=== PATIENT | female | born 1935 | race Hispanic/Latino ===

== ENCOUNTER 2019-01-20 11:04 | Emergency (ER) | payer MEDICARE, OTHER ==
[~2019-01-20] VITALS: Ht 144.8 cm; Wt 49.9 kg
[~2019-01-20 11:04] MED LIST: ADVAIR 250-501 EACH INH; ALBUTEROL0.63 MG/3 INH; ALENDRONATE SOD35 MG PO; AMLODIPINE BESY10 MG PO; ASPIR 8181 MG PO; CALCIUM CARBON500 MG PO; CETIRIZINE HCL10 M1 PO; CIPRO500 MG PO; FLUTICASONE PRO15 G1; LASIX20 MG PO; OMEPRAZOLE40 MG PO; PREDNISONE5 MG PO; TEMAZEPAM15 MG PO
--- OUTSIDE RECORDS SUMMARY | 2019-01-20 11:07 | XMS REPORT ---
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 Allergies, Adverse Reactions, Alerts This patient has no known allergies or adverse reactions. Medications This patient has no known medications. Results Test Description Test Time Test Comments Text Results Atomic Results Result Comments AFB CULTURE + SMEAR 2018-10-21 19:49:00 CULTURE (BEAKER) (test jnmv=8054) MYCOBACTERIUM AVIUM COMPLEX Mycobacterium avium complexIdentification performed by:[facility], [address] [place] [id number] performed by:[facility]ly [facility], Dept. of Microbiology Research, [facility], [address] [place] [address] Amikacin (test code=1) mcg/mL Clarithromycin (test code=42) mcg/mL AFB SMEAR (BEAKER) (test viym=990) No acid fast bacilli seen AFB by MALDI-TOF This test's performance characteristics have been determined by the [facility] in a manner consistent with CLIA requirements. The [employer] [place] MALDI-TOF analysis has not been cleared or approved by the U.S. Food and Drug Administration (FDA). Test results should be interpreted in relation to the patient's clinical picture, other diagnostic findings, and epidemilolgical data.AFB CULTURE + [id number] 10:28:00* Test Item Value Reference Range Comments CULTURE (BEAKER) (test fohr=6412) No acid-fast bacilli isolated in 42 days AFB SMEAR (BEAKER) (test ubic=485) No acid fast bacilli seen SPIN/CONCENTRATION [id number] 16:12:00* Test Item Value Reference Range Comments CONCENTRATION CHARGED (BEAKER) (test rnfz=2040) Done (CELLAVISION MANUAL DIFF)2018-07-06 13:41:00* Test Item Value Reference Range Comments NEUTROPHILS - REL (CELLAVISION)(BEAKER) (test qeyx=1295) 69 % LYMPHOCYTES - REL (CELLAVISION)(BEAKER) (test szcv=0254) 20 % MONOCYTES - REL (CELLAVISION)(BEAKER) (test ujkg=6963) 8 % BANDS - REL (CELLAVISION)(BEAKER) (test cywp=6987) 2 % 0-10 NEUTROPHILS - ABS (CELLAVISION)(BEAKER) (test ugpo=3859) 11.66 K/ul 1.56-6.13 LYMPHOCYTES - ABS (CELLAVISION)(BEAKER) (test smdb=0325) 3.38 K/ul 1.18-3.74 MONOCYTES - ABS (CELLAVISION)(BEAKER) (test autm=2166) 1.35 K/uL 0.24-0.36 BANDS - ABS (CELLAVISION)(BEAKER) (test nkqg=1392) 0.34 K/uL 0.00-0.80 TOTAL COUNTED (BEAKER) (test kalp=0018) 100 WBC MORPHOLOGY (BEAKER) (test eonf=361) Normal GIANT PLATELETS (BEAKER) (test ypsn=827) Present LARGE PLT(BEAKER) (test mazp=5473) Present POLYCHROMATOPHILLIC RBCS(BEAKER) (test pghv=416) 1+ few ANISOCYTOSIS (BEAKER) (test uvkq=956) 1+ few MACROCYTES (BEAKER) (test hvkv=279) 1+ few POIKILOCYTES (BEAKER) (test tlev=094) 1+ few ARTIFACT (CELLAVISION)(BEAKER) (test otni=0903) Present PLATELET CONCENTRATION (CELLAVISION)(BEAKER) (test zsok=6285) Adequate Received comment: User comments: Slide comments: POCT-GLUCOSE [id number] 11:39:00* Test Item Value Reference Range Comments POC-GLUCOSE METER (BEAKER) (test avfg=1352) 117 mg/dL 70-110 TESTED AT [facility] [address] [facility] [address] BASIC METABOLIC [id number] 10:30:00* Test Item Value Reference Range Comments SODIUM (BEAKER) (test nyjy=288) 134 meq/L 136-145 POTASSIUM (BEAKER) (test zzmv=844) 3.9 meq/L 3.5-5.1 CHLORIDE (BEAKER) (test ydks=092) 97 meq/L 98-107 CO2 (BEAKER) (test bbvm=407) 26 meq/L 22-29 BLOOD UREA NITROGEN (BEAKER) (test ydmn=149) 26 mg/dL 7-21 CREATININE (BEAKER) (test ezbb=016) 0.69 mg/dL 0.57-1.25 GLUCOSE RANDOM (BEAKER) (test zxej=704) 123 mg/dL 70-105 CALCIUM (BEAKER) (test eibo=788) 11.5 mg/dL 8.4-10.2 EGFR (BEAKER) (test fxne=8567) 81 mL/min/1.73 sq m ESTIMATED GFR IS NOT ACCURATE CREATININE CLEARANCE IN PREDICTING GLOMERULAR FILTRATION RATE. ESTIMATED GFR IS NOT APPLICABLE FOR DIALYSIS PATIENTS. CBC W/PLT COUNT & AUTO [id number] 10:01:00* Test Item Value Reference Range Comments WHITE BLOOD CELL COUNT (BEAKER) (test spyh=664) 16.9 K/ L 3.5-10.5 RED BLOOD CELL COUNT (BEAKER) (test gyvd=791) 5.04 M/ L 3.93-5.22 HEMOGLOBIN (BEAKER) (test rdej=956) 15.0 GM/DL 11.2-15.7 HEMATOCRIT (BEAKER) (test ctjj=596) 44.7 % 34.1-44.9 MEAN CORPUSCULAR VOLUME (BEAKER) (test mvic=216) 88.7 fL 79.4-94.8 MEAN CORPUSCULAR HEMOGLOBIN (BEAKER) (test vywa=031) 29.8 pg 25.6-32.2 MEAN CORPUSCULAR HEMOGLOBIN CONC (BEAKER) (test vbfy=385) 33.6 GM/DL 32.2-35.5 RED CELL DISTRIBUTION WIDTH (BEAKER) (test dyco=057) 12.4 % 11.7-14.4 PLATELET COUNT (BEAKER) (test ecsn=360) 259 K/CU MM 150-450 MEAN PLATELET VOLUME (BEAKER) (test vyeg=357) 11.3 fL 9.4-12.3 NUCLEATED RED BLOOD CELLS (BEAKER) (test dklb=908) 0 /100 WBC 0-0 POCT-GLUCOSE [id number] 07:57:00* Test Item Value Reference Range Comments POC-GLUCOSE METER (BEAKER) (test mksk=6791) 84 mg/dL 70-110 TESTED AT [address] [address] POCT-GLUCOSE [id number] 21:14:00* Test Item Value Reference Range Comments POC-GLUCOSE METER (BEAKER) (test kfkc=3294) 341 mg/dL 70-110 Baby tested Mother ID used/TESTED AT [address] [address] POCT-GLUCOSE [id number] 17:19:00* Test Item Value Reference Range Comments POC-GLUCOSE METER (BEAKER) (test szuz=2542) 196 mg/dL 70-110 TESTED AT [address] [address] SPIN/CONCENTRATION [id number] 11:22:00* Test Item Value Reference Range Comments CONCENTRATION CHARGED (BEAKER) (test naej=6569) Done POCT-GLUCOSE [id number] 07:44:00* Test Item Value Reference Range Comments POC-GLUCOSE METER (BEAKER) (test wqiy=0542) 81 mg/dL 70-110 TESTED AT [address] [address] POCT-GLUCOSE [id number] 20:52:00* Test Item Value Reference Range Comments POC-GLUCOSE METER (BEAKER) (test aluu=3299) 193 mg/dL 70-110 TESTED AT [address] [address] POCT-GLUCOSE [id number] 17:37:00* Test Item Value Reference Range Comments POC-GLUCOSE METER (BEAKER) (test wdxb=5912) 229 mg/dL 70-110 TESTED AT [address] [address] POCT-GLUCOSE [id number] 13:08:00* Test Item Value Reference Range Comments POC-GLUCOSE METER (BEAKER) (test ynzs=8868) 105 mg/dL 70-110 TESTED AT [address] [address] POCT-GLUCOSE [id number] 07:53:00* Test Item Value Reference Range Comments POC-GLUCOSE METER (BEAKER) (test ixau=1899) 141 mg/dL 70-110 TESTED AT [facility] [address] [facility] [address] TROPONIN [id number] 06:48:00* Test Item Value Reference Range Comments TROPONIN I (BEAKER) (test dpdh=703) < ng/mL 0.00-0.03 Troponin I (TnI) levels must be interpreted in the context of the presenting sym ptoms and the clinical findings. Elevated TnI levels indicate myocardial damage, but are not specific for ischemic heart disease. Elevated TnI levels are seen in patients with other cardiac conditions (including myocarditis and congestive h eart failure), and slight TnI elevations occur in patients with other conditions , including sepsis, renal failure, acidosis, acute neurological disease, and per sistent tachyarrhythmia.CBC W/PLT COUNT & AUTO [id number] 01:50:00* Test Item Value Reference Range Comments WHITE BLOOD CELL COUNT (BEAKER) (test nukf=640) 13.7 K/ L 3.5-10.5 RED BLOOD CELL COUNT (BEAKER) (test olox=464) 4.61 M/ L 3.93-5.22 HEMOGLOBIN (BEAKER) (test wdap=014) 13.8 GM/DL 11.2-15.7 HEMATOCRIT (BEAKER) (test dybx=608) 41.2 % 34.1-44.9 MEAN CORPUSCULAR VOLUME (BEAKER) (test vrlt=771) 89.4 fL 79.4-94.8 MEAN CORPUSCULAR HEMOGLOBIN (BEAKER) (test mzys=371) 29.9 pg 25.6-32.2 MEAN CORPUSCULAR HEMOGLOBIN CONC (BEAKER) (test ypba=351) 33.5 GM/DL 32.2-35.5 RED CELL DISTRIBUTION WIDTH (BEAKER) (test qhqz=171) 12.3 % 11.7-14.4 PLATELET COUNT (BEAKER) (test agtg=499) 210 K/CU MM 150-450 MEAN PLATELET VOLUME (BEAKER) (test ftnx=982) 10.6 fL 9.4-12.3 NUCLEATED RED BLOOD CELLS (BEAKER) (test uhhf=571) 0 /100 WBC 0-0 NEUTROPHILS RELATIVE PERCENT (BEAKER) (test pevi=790) 75 % LYMPHOCYTES RELATIVE PERCENT (BEAKER) (test addt=501) 14 % MONOCYTES RELATIVE PERCENT (BEAKER) (test pgfz=681) 9 % EOSINOPHILS RELATIVE PERCENT (BEAKER) (test nvdq=111) 0 % BASOPHILS RELATIVE PERCENT (BEAKER) (test dkev=298) 0 % NEUTROPHILS ABSOLUTE COUNT (BEAKER) (test jqsg=521) 10.26 K/ L 1.56-6.13 LYMPHOCYTES ABSOLUTE COUNT (BEAKER) (test aykd=558) 1.86 K/ L 1.18-3.74 MONOCYTES ABSOLUTE COUNT (BEAKER) (test rkqm=019) 1.22 K/ L 0.24-0.36 EOSINOPHILS ABSOLUTE COUNT (BEAKER) (test aful=843) 0.02 K/ L 0.04-0.36 BASOPHILS ABSOLUTE COUNT (BEAKER) (test lsxz=282) 0.03 K/ L 0.01-0.08 IMMATURE GRANULOCYTES-RELATIVE PERCENT (BEAKER) (test kvac=0321) 2 % 0-1 TROPONIN [id number] 01:48:00* Test Item Value Reference Range Comments TROPONIN I (BEAKER) (test uiah=300) < ng/mL 0.00-0.03 Troponin I (TnI) levels must be interpreted in the context of the presenting sym ptoms and the clinical findings. Elevated TnI levels indicate myocardial damage, but are not specific for ischemic heart disease. Elevated TnI levels are seen in patients with other cardiac conditions (including myocarditis and congestive h eart failure), and slight TnI elevations occur in patients with other conditions , including sepsis, renal failure, acidosis, acute neurological disease, and per sistent tachyarrhythmia.[id number] 01:40:00* Test Item Value Reference Range Comments MAGNESIUM (BEAKER) (test utkt=349) 1.9 mg/dL 1.6-2.6 BASIC METABOLIC [id number] 01:40:00* Test Item Value Reference Range Comments SODIUM (BEAKER) (test pwyv=810) 139 meq/L 136-145 POTASSIUM (BEAKER) (test ofis=614) 3.5 meq/L 3.5-5.1 CHLORIDE (BEAKER) (test jfzh=263) 102 meq/L 98-107 CO2 (BEAKER) (test usqz=144) 27 meq/L 22-29 BLOOD UREA NITROGEN (BEAKER) (test rzzq=460) 20 mg/dL 7-21 CREATININE (BEAKER) (test ympn=550) 0.60 mg/dL 0.57-1.25 GLUCOSE RANDOM (BEAKER) (test psah=878) 136 mg/dL 70-105 CALCIUM (BEAKER) (test xpfo=322) 10.3 mg/dL 8.4-10.2 EGFR (BEAKER) (test rtvl=9833) 95 mL/min/1.73 sq m ESTIMATED GFR IS NOT ACCURATE CREATININE CLEARANCE IN PREDICTING GLOMERULAR FILTRATION RATE. ESTIMATED GFR IS NOT APPLICABLE FOR DIALYSIS PATIENTS. POCT-GLUCOSE [id number] 20:45:00* Test Item Value Reference Range Comments POC-GLUCOSE METER (BEAKER) (test nltm=8391) 344 mg/dL 70-110 Notified VIANEY JJ/TESTED AT [place] [address]130 POCT-GLUCOSE [id number] 17:04:00* Test Item Value Reference Range Comments POC-GLUCOSE METER (BEAKER) (test ruok=4236) 190 mg/dL 70-110 TESTED AT [place] 2026130 POCT-GLUCOSE [id number] 12:21:00* Test Item Value Reference Range Comments POC-GLUCOSE METER (BEAKER) (test ypmd=6366) 339 mg/dL 70-110 TESTED AT [place] [address]26130 POCT-GLUCOSE [id number] 09:09:00* Test Item Value Reference Range Comments POC-GLUCOSE METER (BEAKER) (test dfwk=3289) 144 mg/dL 70-110 TESTED AT [place] 2026130 POCT-GLUCOSE [id number] 21:07:00* Test Item Value Reference Range Comments POC-GLUCOSE METER (BEAKER) (test soju=9745) 206 mg/dL 70-110 TESTED AT [place] 2026130 BLOOD [id number] 20:01:00* Test Item Value Reference Range Comments CULTURE (BEAKER) (test kfbv=7451) No growth in 5 days POCT-GLUCOSE [id number] 17:41:00* Test Item Value Reference Range Comments POC-GLUCOSE METER (BEAKER) (test gqhi=4373) 267 mg/dL 70-110 TESTED AT [address] [place] [address] POCT-GLUCOSE [id number] 11:42:00* Test Item Value Reference Range Comments POC-GLUCOSE METER (BEAKER) (test bnrl=9938) 221 mg/dL 70-110 TESTED AT [address] [address] [id number] 08:23:00* Test Item Value Reference Range Comments ALPHA-1 ANTITRYPSIN (BEAKER) (test rftp=405) 135.80 mg/dL 90.00-200.00 POCT-GLUCOSE [id number] 07:47:00* Test Item Value Reference Range Comments POC-GLUCOSE METER (BEAKER) (test qkem=2973) 145 mg/dL 70-110 TESTED AT [address] [address] CBC W/PLT COUNT & AUTO [id number] 07:01:00* Test Item Value Reference Range Comments WHITE BLOOD CELL COUNT (BEAKER) (test fozy=566) 14.1 K/ L 3.5-10.5 RED BLOOD CELL COUNT (BEAKER) (test zmax=265) 4.29 M/ L 3.93-5.22 HEMOGLOBIN (BEAKER) (test xtfb=805) 12.9 GM/DL 11.2-15.7 HEMATOCRIT (BEAKER) (test ztfj=366) 39.5 % 34.1-44.9 MEAN CORPUSCULAR VOLUME (BEAKER) (test vooa=241) 92.1 fL 79.4-94.8 MEAN CORPUSCULAR HEMOGLOBIN (BEAKER) (test osef=375) 30.1 pg 25.6-32.2 MEAN CORPUSCULAR HEMOGLOBIN CONC (BEAKER) (test anur=365) 32.7 GM/DL 32.2-35.5 RED CELL DISTRIBUTION WIDTH (BEAKER) (test xhpl=827) 12.4 % 11.7-14.4 PLATELET COUNT (BEAKER) (test pihi=606) 211 K/CU MM 150-450 MEAN PLATELET VOLUME (BEAKER) (test evtd=334) 11.1 fL 9.4-12.3 NUCLEATED RED BLOOD CELLS (BEAKER) (test xldk=757) 0 /100 WBC 0-0 NEUTROPHILS RELATIVE PERCENT (BEAKER) (test rgbh=359) 81 % LYMPHOCYTES RELATIVE PERCENT (BEAKER) (test lxds=508) 10 % MONOCYTES RELATIVE PERCENT (BEAKER) (test rrsw=055) 8 % EOSINOPHILS RELATIVE PERCENT (BEAKER) (test uegd=628) 0 % BASOPHILS RELATIVE PERCENT (BEAKER) (test oxsi=313) 0 % NEUTROPHILS ABSOLUTE COUNT (BEAKER) (test zmuc=567) 11.48 K/ L 1.56-6.13 LYMPHOCYTES ABSOLUTE COUNT (BEAKER) (test tfkf=073) 1.37 K/ L 1.18-3.74 MONOCYTES ABSOLUTE COUNT (BEAKER) (test qffc=539) 1.13 K/ L 0.24-0.36 EOSINOPHILS ABSOLUTE COUNT (BEAKER) (test kbml=593) 0.01 K/ L 0.04-0.36 BASOPHILS ABSOLUTE COUNT (BEAKER) (test rbqy=465) 0.02 K/ L 0.01-0.08 IMMATURE GRANULOCYTES-RELATIVE PERCENT (BEAKER) (test qvyz=5029) 1 % 0-1 POCT-GLUCOSE [id number] 21:26:00* Test Item Value Reference Range Comments POC-GLUCOSE METER (BEAKER) (test skrj=9118) 157 mg/dL 70-110 TESTED AT [facility] [address] [facility] [address] POCT-GLUCOSE [id number] 16:24:00* Test Item Value Reference Range Comments POC-GLUCOSE METER (BEAKER) (test mbqp=8992) 394 mg/dL 70-110 TESTED AT [facility] [address] [facility] [address] RAD, CHEST, 1 VIEW, NON [id number] 09:41:00Reason for exam:->dyspneaShould this be performed at the bedside?->YesFINAL REPORT Comparison: 06/28/2018 TECHNIQUE: Single view of the chest FINDINGS: Scattered atelectasis and/or scarring. Otherwise lungs are grossly clear. Cardiac silhouette is magnified by technique. No acute skeletal abnormality. IMPRESSION: No significant interval change. Signed: Clint Pavon Verified Date/Time: 07/01/2018 09:41:25 Reading Location: [facility] Radiology Reading Room -GLUCOSE [id number] 08:15:00* Test Item Value Reference Range Comments POC-GLUCOSE METER (BEAKER) (test alqh=2528) 125 mg/dL 70-110 TESTED AT [facility] [address] [facility] [address] [id number] 04:02:00* Test Item Value Reference Range Comments PHOSPHORUS (BEAKER) (test vuex=948) 2.4 mg/dL 2.3-4.7 [id number] 04:02:00* Test Item Value Reference Range Comments MAGNESIUM (BEAKER) (test geqg=545) 1.9 mg/dL 1.6-2.6 BASIC METABOLIC [id number] 04:02:00* Test Item Value Reference Range Comments SODIUM (BEAKER) (test pwtf=436) 143 meq/L 136-145 POTASSIUM (BEAKER) (test hbgx=088) 4.3 meq/L 3.5-5.1 CHLORIDE (BEAKER) (test hlkv=329) 105 meq/L 98-107 CO2 (BEAKER) (test pnql=784) 29 meq/L 22-29 BLOOD UREA NITROGEN (BEAKER) (test evyj=785) 28 mg/dL 7-21 CREATININE (BEAKER) (test ctgh=600) 0.71 mg/dL 0.57-1.25 GLUCOSE RANDOM (BEAKER) (test kpsu=488) 117 mg/dL 70-105 CALCIUM (BEAKER) (test siko=768) 10.6 mg/dL 8.4-10.2 EGFR (BEAKER) (test cmye=1618) 79 mL/min/1.73 sq m ESTIMATED GFR IS NOT ACCURATE CREATININE CLEARANCE IN PREDICTING GLOMERULAR FILTRATION RATE. ESTIMATED GFR IS NOT APPLICABLE FOR DIALYSIS PATIENTS. CBC W/PLT COUNT & AUTO [id number] 03:48:00* Test Item Value Reference Range Comments WHITE BLOOD CELL COUNT (BEAKER) (test djmu=509) 13.8 K/ L 3.5-10.5 RED BLOOD CELL COUNT (BEAKER) (test rkcy=944) 4.58 M/ L 3.93-5.22 HEMOGLOBIN (BEAKER) (test udjf=773) 13.4 GM/DL 11.2-15.7 HEMATOCRIT (BEAKER) (test irxi=102) 42.5 % 34.1-44.9 MEAN CORPUSCULAR VOLUME (BEAKER) (test nwaw=747) 92.8 fL 79.4-94.8 MEAN CORPUSCULAR HEMOGLOBIN (BEAKER) (test tnng=529) 29.3 pg 25.6-32.2 MEAN CORPUSCULAR HEMOGLOBIN CONC (BEAKER) (test rpli=147) 31.5 GM/DL 32.2-35.5 RED CELL DISTRIBUTION WIDTH (BEAKER) (test inpe=883) 12.2 % 11.7-14.4 PLATELET COUNT (BEAKER) (test obfo=870) 266 K/CU MM 150-450 MEAN PLATELET VOLUME (BEAKER) (test vmfh=495) 10.7 fL 9.4-12.3 NUCLEATED RED BLOOD CELLS (BEAKER) (test yavu=393) 0 /100 WBC 0-0 NEUTROPHILS RELATIVE PERCENT (BEAKER) (test xvde=838) 77 % LYMPHOCYTES RELATIVE PERCENT (BEAKER) (test ipbr=401) 12 % MONOCYTES RELATIVE PERCENT (BEAKER) (test rjms=831) 9 % EOSINOPHILS RELATIVE PERCENT (BEAKER) (test bcpu=825) 0 % BASOPHILS RELATIVE PERCENT (BEAKER) (test bqha=366) 0 % NEUTROPHILS ABSOLUTE COUNT (BEAKER) (test syqj=930) 10.56 K/ L 1.56-6.13 LYMPHOCYTES ABSOLUTE COUNT (BEAKER) (test pwjx=949) 1.70 K/ L 1.18-3.74 MONOCYTES ABSOLUTE COUNT (BEAKER) (test yiop=334) 1.27 K/ L 0.24-0.36 EOSINOPHILS ABSOLUTE COUNT (BEAKER) (test sqaf=928) 0.01 K/ L 0.04-0.36 BASOPHILS ABSOLUTE COUNT (BEAKER) (test fiep=446) 0.03 K/ L 0.01-0.08 IMMATURE GRANULOCYTES-RELATIVE PERCENT (BEAKER) (test ovhe=1928) 2 % 0-1 POCT-GLUCOSE [id number] 21:11:00* Test Item Value Reference Range Comments POC-GLUCOSE METER (BEAKER) (test eidp=5014) 247 mg/dL 70-110 TESTED AT [facility] [address] [facility] [address] POCT-GLUCOSE [id number] 18:05:00* Test Item Value Reference Range Comments POC-GLUCOSE METER (BEAKER) (test sgmd=9497) 258 mg/dL 70-110 TESTED AT [facility] [address] [place] [address] BLOOD [id number] 17:51:00* Test Item Value Reference Range Comments CULTURE (BEAKER) (test dwag=8890) From Aerobic And Anaerobic Bottles Coagulase negative Staphylococcus GRAM STAIN RESULT (BEAKER) (test cesn=8637) From aerobic and anaerobic bottles: gram positive cocci in clusters [id number] 15:52:00* Test Item Value Reference Range Comments POTASSIUM (BEAKER) (test atlt=413) 4.7 meq/L 3.5-5.1 [id number] 15:52:00* Test Item Value Reference Range Comments MAGNESIUM (BEAKER) (test hadn=980) 1.9 mg/dL 1.6-2.6 POCT-GLUCOSE [id number] 12:39:00* Test Item Value Reference Range Comments POC-GLUCOSE METER (BEAKER) (test dskx=2869) 201 mg/dL 70-110 TESTED AT [place] [address]26130 SPUTUM CULTURE + GRAM [id number] 12:12:00* Test Item Value Reference Range Comments CULTURE (BEAKER) (test ovep=9194) 2+ Normal respiratory drew present GRAM STAIN RESULT (BEAKER) (test xbke=4492) 1+ WBCs GRAM STAIN RESULT (BEAKER) (test oiab=04998) 1+ gram negative rods GRAM STAIN RESULT (BEAKER) (test lqri=00972) <1+ gram positive cocci in pairs GRAM STAIN RESULT (BEAKER) (test ahkb=967941) 0-5 epithelial cells POCT-GLUCOSE [id number] 09:22:00* Test Item Value Reference Range Comments POC-GLUCOSE METER (BEAKER) (test sgkt=7532) 108 mg/dL 70-110 TESTED AT [address] [address] POCT-GLUCOSE [id number] 21:48:00* Test Item Value Reference Range Comments POC-GLUCOSE METER (BEAKER) (test iscq=2104) 208 mg/dL 70-110 TESTED AT [address] [address] POCT-GLUCOSE [id number] 18:05:00* Test Item Value Reference Range Comments POC-GLUCOSE METER (BEAKER) (test jequ=9518) 179 mg/dL 70-110 TESTED AT [facility] [address] [facility] [address] POCT-GLUCOSE [id number] 12:45:00* Test Item Value Reference Range Comments POC-GLUCOSE METER (BEAKER) (test gxib=6425) 221 mg/dL 70-110 TESTED AT [facility] [address] [facility] [address] POCT-GLUCOSE [id number] 09:01:00* Test Item Value Reference Range Comments POC-GLUCOSE METER (BEAKER) (test gxlz=5144) 209 mg/dL 70-110 TESTED AT [place] [id number] [facility] [address] CBC W/PLT COUNT & AUTO [id number] 07:15:00* Test Item Value Reference Range Comments WHITE BLOOD CELL COUNT (BEAKER) (test ltka=754) 11.1 K/ L 3.5-10.5 RED BLOOD CELL COUNT (BEAKER) (test dvyq=361) 4.22 M/ L 3.93-5.22 HEMOGLOBIN (BEAKER) (test fdto=819) 12.4 GM/DL 11.2-15.7 HEMATOCRIT (BEAKER) (test vxse=519) 39.1 % 34.1-44.9 MEAN CORPUSCULAR VOLUME (BEAKER) (test uxtf=464) 92.7 fL 79.4-94.8 MEAN CORPUSCULAR HEMOGLOBIN (BEAKER) (test zyno=639) 29.4 pg 25.6-32.2 MEAN CORPUSCULAR HEMOGLOBIN CONC (BEAKER) (test gyzx=513) 31.7 GM/DL 32.2-35.5 RED CELL DISTRIBUTION WIDTH (BEAKER) (test rqan=792) 12.4 % 11.7-14.4 PLATELET COUNT (BEAKER) (test gdrc=527) 284 K/CU MM 150-450 MEAN PLATELET VOLUME (BEAKER) (test ogak=889) 10.7 fL 9.4-12.3 NUCLEATED RED BLOOD CELLS (BEAKER) (test pkwv=573) 0 /100 WBC 0-0 NEUTROPHILS RELATIVE PERCENT (BEAKER) (test yjdm=089) 87 % LYMPHOCYTES RELATIVE PERCENT (BEAKER) (test dwet=200) 8 % MONOCYTES RELATIVE PERCENT (BEAKER) (test tdjx=676) 4 % EOSINOPHILS RELATIVE PERCENT (BEAKER) (test ypyd=759) 0 % BASOPHILS RELATIVE PERCENT (BEAKER) (test kkaz=421) 0 % NEUTROPHILS ABSOLUTE COUNT (BEAKER) (test noap=428) 9.71 K/ L 1.56-6.13 LYMPHOCYTES ABSOLUTE COUNT (BEAKER) (test oomk=526) 0.84 K/ L 1.18-3.74 MONOCYTES ABSOLUTE COUNT (BEAKER) (test qtfp=908) 0.41 K/ L 0.24-0.36 EOSINOPHILS ABSOLUTE COUNT (BEAKER) (test pwdf=425) 0.00 K/ L 0.04-0.36 BASOPHILS ABSOLUTE COUNT (BEAKER) (test uqlt=387) 0.01 K/ L 0.01-0.08 IMMATURE GRANULOCYTES-RELATIVE PERCENT (BEAKER) (test rgqp=0023) 1 % 0-1 BASIC METABOLIC [id number] 06:47:00* Test Item Value Reference Range Comments SODIUM (BEAKER) (test qbho=468) 138 meq/L 136-145 POTASSIUM (BEAKER) (test vflt=049) 4.0 meq/L 3.5-5.1 CHLORIDE (BEAKER) (test xzpc=234) 104 meq/L 98-107 CO2 (BEAKER) (test qkci=656) 27 meq/L 22-29 BLOOD UREA NITROGEN (BEAKER) (test pdbn=595) 30 mg/dL 7-21 CREATININE (BEAKER) (test qfzc=992) 0.69 mg/dL 0.57-1.25 GLUCOSE RANDOM (BEAKER) (test xlbg=783) 193 mg/dL 70-105 CALCIUM (BEAKER) (test kcui=865) 9.8 mg/dL 8.4-10.2 EGFR (BEAKER) (test geqa=5571) 81 mL/min/1.73 sq m ESTIMATED GFR IS NOT ACCURATE CREATININE CLEARANCE IN PREDICTING GLOMERULAR FILTRATION RATE. ESTIMATED GFR IS NOT APPLICABLE FOR DIALYSIS PATIENTS. POCT-GLUCOSE [id number] 01:00:00* Test Item Value Reference Range Comments POC-GLUCOSE METER (BEAKER) (test annq=2933) 208 mg/dL 70-110 TESTED AT [facility] [address] [facility] [address] POCT-GLUCOSE [id number] 18:23:00* Test Item Value Reference Range Comments POC-GLUCOSE METER (BEAKER) (test lhno=9625) 232 mg/dL 70-110 TESTED AT [facility] [address] [facility] [address] POCT-GLUCOSE [id number] 13:31:00* Test Item Value Reference Range Comments POC-GLUCOSE METER (MARÍA) (test jbns=5071) 171 mg/dL 70-110 TESTED AT [facility] [address] [facility] [address] HEMOGLOBIN [id number] 12:27:00* Test Item Value Reference Range Comments HEMOGLOBIN A1C (MARÍA) (test pcin=212) 5.8 % 4.3-6.1 BLOOD CULTURE IDENTIFICATION [id number] 10:44:00* Test Item Value Reference Range Comments LISTERIA MONOCYTOGENES (test apkg=[id number]) Not detected Not detected STAPHYLOCOCCUS (test anli=3820712) Detected Not detected First line therapy: Vancomycin Coagulase Negative Staphylococcus (CoNS) DETECTEDmecA DETECTED Possible contamination.The likelihood of pathogenicity is increased if the organism is observed in multiple blood cultures obtained from separate venipunctures. Reference Range: Not Detected STAPHYLOCOCCUS AUREUS (test ohvu=2780790) Not detected Not detected STREPTOCOCCUS (test xzqu=1806409) Not detected Not detected STREPTOCOCCUS AGALACTIAE (GROUP B) (test yhcp=3899460) Not detected Not detected STREPTOCOCCUS PNEUMONIAE (test oegl=4102511) Not detected Not detected STREPTOCOCCUS PYOGENES (GROUP A) (test pyjf=0390145) Not detected Not detected ACINETOBACTER BAUMANNII (test epxj=7190954) Not detected Not detected HAEMOPHILUS INFLUENZAE (test ajas=0171755) Not detected Not detected NEISSERIA MENINGITIDIS (test bscx=1703961) Not detected Not detected ENTEROBACTERIACEAE (test zxmv=4967516) Not detected Not detected ENTEROBACTER CLOACOE COMPLEX (test uekp=3774419) Not detected Not detected KLEBSIELLA OXYTOCA (test kuwa=9120260) Not detected Not detected KLEBSIELLA PNEUMONIAE (test jkri=9555) Not detected Not detected PROTEUS (test ecnm=[id number]) Not detected Not detected SERRATIA MARCESCENS (test harq=[id number]) Not detected Not detected JUDI ALBICANS (test tgvm=3081187) Not detected Not detected JUDI GLABRATA (test rssq=9301644) Not detected Not detected JUDI KRUSEI (test cdcb=7782812) Not detected Not detected JUDI PARAPSILOSIS (test bvtl=8048995) Not detected Not detected JUDI TROPICALIS (test igar=8832911) Not detected Not detected ESCHERICHIA COLI (test grtw=2215117) Not detected Not detected METHICILLIN-RESISTANCE GENE (test lfrg=0001958) Detected Not detected VANCOMYCIN-RESISTANCE GENE (test iwod=9907644) Not detected CARBAPENEM-RESISTANCE GENE (test vjli=6931954) Not detected ENTEROCOCCUS-BEAKER (test hcwo=2918478) Not detected Not detected PSEUDOMONAS AERUGINOSA-BEAKER (test zyhm=1630697) Not detected Not detected Other bacteria and resistance markers not targeted by this PCR panel cannot be e xcluded; therefore clinical correlation and follow up of serology, culture resul ts, and other molecular studies is required. The results are not intended to be used as the sole means for clinical diagnosis or patient management decisions. T his sample was tested at the [facility] Molecular [facility]ostics Laboratory using the [employer] Blood Culture ID Panel. It is FDA cleared and has been verified and approved by the [facility] for clinical use. Thi s laboratory is CLIA-certified and [employer] ([employer])-accred ited to perform high complexity testing.POCT-GLUCOSE [id number] 09:25:00* Test Item Value Reference Range Comments POC-GLUCOSE METER (BEAKER) (test qikk=9840) 196 mg/dL 70-110 TESTED AT [facility] [address] [facility] [address] RAD, CHEST, 1 VIEW, NON [id number] 08:44:00Reason for exam:->COUGHReason for exam:->ASTHMAFINAL REPORT CLINICAL HISTORY: COUGHASTHMA TECHNIQUE: 1 view of the chest. COMPARISON: 06/27/2018 IMPRESSION: Bilateral lower lung atelectasis is unchanged. There is no lobar consolidation. There is new blunting of the costophrenic angles. The cardiomediastinal silhouette is magnified by technique. Signed: Tahmina Cortes MDReport Verified Date/Time: 06/28/2018 08:44:46 Reading Location: [facility] Radiology Reading Room ESIUM 2018-06-28 03:34:00* Test Item Value Reference Range Comments MAGNESIUM (BEAKER) (test cory=657) 1.7 mg/dL 1.6-2.6 BASIC METABOLIC [id number] 03:34:00* Test Item Value Reference Range Comments SODIUM (BEAKER) (test axlq=065) 140 meq/L 136-145 POTASSIUM (BEAKER) (test duny=584) 3.4 meq/L 3.5-5.1 CHLORIDE (BEAKER) (test cnmn=555) 101 meq/L 98-107 CO2 (BEAKER) (test qzcv=023) 31 meq/L 22-29 BLOOD UREA NITROGEN (BEAKER) (test lbab=659) 20 mg/dL 7-21 CREATININE (BEAKER) (test qbaa=545) 0.71 mg/dL 0.57-1.25 GLUCOSE RANDOM (BEAKER) (test shbf=830) 185 mg/dL 70-105 CALCIUM (BEAKER) (test qixp=023) 10.5 mg/dL 8.4-10.2 EGFR (BEAKER) (test bord=4226) 79 mL/min/1.73 sq m ESTIMATED GFR IS NOT ACCURATE CREATININE CLEARANCE IN PREDICTING GLOMERULAR FILTRATION RATE. ESTIMATED GFR IS NOT APPLICABLE FOR DIALYSIS PATIENTS. CBC W/PLT COUNT & AUTO [id number] 03:15:00* Test Item Value Reference Range Comments WHITE BLOOD CELL COUNT (BEAKER) (test kqjw=579) 9.7 K/ L 3.5-10.5 RED BLOOD CELL COUNT (BEAKER) (test sftc=719) 4.08 M/ L 3.93-5.22 HEMOGLOBIN (BEAKER) (test keqq=746) 12.3 GM/DL 11.2-15.7 HEMATOCRIT (BEAKER) (test kzhk=121) 37.5 % 34.1-44.9 MEAN CORPUSCULAR VOLUME (BEAKER) (test ihug=973) 91.9 fL 79.4-94.8 MEAN CORPUSCULAR HEMOGLOBIN (BEAKER) (test xzsc=866) 30.1 pg 25.6-32.2 MEAN CORPUSCULAR HEMOGLOBIN CONC (BEAKER) (test fuql=567) 32.8 GM/DL 32.2-35.5 RED CELL DISTRIBUTION WIDTH (BEAKER) (test nnpx=323) 12.5 % 11.7-14.4 PLATELET COUNT (BEAKER) (test ivcr=712) 309 K/CU MM 150-450 MEAN PLATELET VOLUME (BEAKER) (test yrmw=621) 10.5 fL 9.4-12.3 NUCLEATED RED BLOOD CELLS (BEAKER) (test ocii=374) 0 /100 WBC 0-0 NEUTROPHILS RELATIVE PERCENT (BEAKER) (test laap=926) 88 % LYMPHOCYTES RELATIVE PERCENT (BEAKER) (test xicr=051) 8 % MONOCYTES RELATIVE PERCENT (BEAKER) (test hcke=322) 3 % EOSINOPHILS RELATIVE PERCENT (BEAKER) (test qhof=666) 0 % BASOPHILS RELATIVE PERCENT (BEAKER) (test lfiu=871) 0 % NEUTROPHILS ABSOLUTE COUNT (BEAKER) (test cjzi=669) 8.53 K/ L 1.56-6.13 LYMPHOCYTES ABSOLUTE COUNT (BEAKER) (test ebhk=873) 0.81 K/ L 1.18-3.74 MONOCYTES ABSOLUTE COUNT (BEAKER) (test njgp=276) 0.31 K/ L 0.24-0.36 EOSINOPHILS ABSOLUTE COUNT (BEAKER) (test clat=657) 0.00 K/ L 0.04-0.36 BASOPHILS ABSOLUTE COUNT (BEAKER) (test zaud=016) 0.01 K/ L 0.01-0.08 IMMATURE GRANULOCYTES-RELATIVE PERCENT (BEAKER) (test bwvz=5549) 1 % 0-1 POCT-GLUCOSE [id number] 21:14:00* Test Item Value Reference Range Comments POC-GLUCOSE METER (BEAKER) (test jjki=0793) 344 mg/dL 70-110 Will Repeat Test/TESTED AT [address] [address] LACTIC ACID, [id number] 19:40:00* Test Item Value Reference Range Comments LACTATE BLOOD VENOUS (2) (BEAKER) (test nspy=3212) 1.9 mmol/L 0.5-2.2 BLOOD GAS, [id number] 17:36:00* Test Item Value Reference Range Comments PH ARTERIAL (BEAKER) (test ybyw=988) 7.46 7.35-7.45 PCO2 ARTERIAL (BEAKER) (test ktqf=794) 44 mmHg 35-45 PO2 ARTERIAL (BEAKER) (test sonu=786) 91 mmHg 80-90 O2 SATURATION ARTERIAL (BEAKER) (test iuds=534) 97.3 % 96.0-97.0 HCO3 ARTERIAL (BEAKER) (test gdxv=275) 31 mmol/L 21-29 BASE EXCESS ARTERIAL (BEAKER) (test pdgv=588) 6.0 mmol/L -2.0-3.0 PATIENT TEMPERATURE (BEAKER) (test xicj=7707) 37.0 C FIO2 (BEAKER) (test tigl=5731) 21.0 % RESPIRATORY PANEL [id number] 14:25:00* Test Item Value Reference Range Comments HUMAN METAPNEUMOVIRUS (BEAKER) (test pzrd=4796) Not detected Not detected, Equivocal RHINOVIRUS (BEAKER) (test qwah=2679) Not detected Not detected, Equivocal INFLUENZA A (BEAKER) (test zoff=3928) Not detected Not detected, Equivocal INFLUENZA A (NO SUBTYPE) (test xlsd=5658) Not detected, Equivocal INFLUENZA A SUBTYPE H1 (BEAKER) (test lhtp=1132) Not detected, Equivocal INFLUENZA A SUBTYPE H3 (BEAKER) (test szcq=4007) Not detected, Equivocal INFLUENZA A SUBTYPE H1-2009 (BEAKER) (test zdbd=1427) Not detected, Equivocal INFLUENZA B (BEAKER) (test cswq=0579) Not detected Not detected, Equivocal RESPIRATORY SYNCYTIAL VIRUS (BEAKER) (test miws=4548) Not detected Not detected, Equivocal PARAINFLUENZA VIRUS 1 (BEAKER) (test ffxz=0610) Not detected Not detected, Equivocal PARAINFLUENZA VIRUS 2 (BEAKER) (test qodk=2644) Not detected Not detected, Equivocal PARAINFLUENZA VIRUS 3 (BEAKER) (test msvc=6227) Not detected Not detected, Equivocal PARAINFLUENZA VIRUS 4 (BEAKER) (test uhzj=2725) Not detected Not detected, Equivocal ADENOVIRUS (BEAKER) (test ppoh=0470) Not detected Not detected, Equivocal CORONAVIRUS 229E (BEAKER) (test twpk=9312) Not detected Not detected, Equivocal CORONAVIRUS HKU1 (BEAKER) (test psbi=4650) Not detected Not detected, Equivocal CORONAVIRUS NL63 (BEAKER) (test whav=4783) Not detected Not detected, Equivocal CORONAVIRUS OC43 (BEAKER) (test zdad=8808) Not detected Not detected, Equivocal BORDETELLA PERTUSSIS (BEAKER) (test nimj=3502) Not detected Not detected, Equivocal CHLAMYDOPHILA PNEUMONIAE (BEAKER) (test yoka=0971) Not detected Not detected, Equivocal MYCOPLASMA PNEUMONIAE (BEAKER) (test jkwh=3622) Not detected Not detected, Equivocal Other viruses and bacteria not targeted by this PCR panel cannot be excluded; th erefore clinical correlation and follow up of serology, culture results, and oth er molecular studies is required. The results are not intended to be used as the sole means for clinical diagnosis or patient management decisions. This sample was tested at the [facility] Molecular Diagnostics Laboratory using the [employer] rray Respiratory Panel. It is FDA cleared and has been verified and approved by the [facility] for clinical use on nasal swab specim ens. It is not FDA-cleared for use on bronchial wash/lavage samples. However, fo r this sample type, validation was performed and test characteristics were deter mined and approved, by [facility] [employer] Diagnostics laboratory for clinical use u nder the Clinical Laboratory Improvement Amendments (CLIA) of 1988 requirements. Therefore, FDA clearance is not required. This laboratory is CLIA-certified and [employer] (CAP)-accredited to perform high complexity t esting.RAD, CHEST, 1 VIEW, NON [id number] 13:18:00Reason for exam:-> COUGHReason for exam:->ASTHMAFINAL REPORT CLINICAL HISTORY: COUGHASTHMA TECHNIQUE: 1 view of the chest. COMPARISON: 08/30/2017 IMPRESSION: Bandlike opacities in bilateral lower lungs are unchanged. There is no new lobar consolidation or increasing pleural fluid. The cardiomediastinal silhouette is magnified by technique. Signed: Tahmina Cortes MDReport Verified Date/Time: 06/27/2018 13:18:35 Reading Location: [address] Consult Reading Room D INFLUENZA A&B [id number] 13:01:00* Test Item Value Reference Range Comments RAPID INFLUENZA A AG (BEAKER) (test aguh=6896) Negative Negative, Inconclusive RAPID INFLUENZA B AG (BEAKER) (test ncqk=5409) Negative Negative, Inconclusive B-TYPE NATRIURETIC FACTOR (BNP)2018-06-27 12:58:00* Test Item Value Reference Range Comments B-TYPE NATRIURETIC PEPTIDE (BEAKER) (test qabe=766) 199 pg/mL 0-100 TROPONIN [id number] 12:58:00* Test Item Value Reference Range Comments TROPONIN I (BEAKER) (test dcoi=937) < ng/mL 0.00-0.03 Troponin I (TnI) levels must be interpreted in the context of the presenting sym ptoms and the clinical findings. Elevated TnI levels indicate myocardial damage, but are not specific for ischemic heart disease. Elevated TnI levels are seen in patients with other cardiac conditions (including myocarditis and congestive h eart failure), and slight TnI elevations occur in patients with other conditions , including sepsis, renal failure, acidosis, acute neurological disease, and per sistent tachyarrhythmia.BASIC METABOLIC [id number] 12:52:00* Test Item Value Reference Range Comments SODIUM (BEAKER) (test kyha=628) 139 meq/L 136-145 POTASSIUM (BEAKER) (test vwts=547) 3.9 meq/L 3.5-5.1 CHLORIDE (BEAKER) (test toem=142) 100 meq/L 98-107 CO2 (BEAKER) (test znhq=896) 25 meq/L 22-29 BLOOD UREA NITROGEN (BEAKER) (test evqd=501) 18 mg/dL 7-21 CREATININE (BEAKER) (test yhtl=002) 0.65 mg/dL 0.57-1.25 GLUCOSE RANDOM (BEAKER) (test sauh=155) 89 mg/dL 70-105 CALCIUM (BEAKER) (test cimq=828) 11.4 mg/dL 8.4-10.2 EGFR (BEAKER) (test aeeo=3484) 87 mL/min/1.73 sq m ESTIMATED GFR IS NOT ACCURATE CREATININE CLEARANCE IN PREDICTING GLOMERULAR FILTRATION RATE. ESTIMATED GFR IS NOT APPLICABLE FOR DIALYSIS PATIENTS. [id number] 12:51:00* Test Item Value Reference Range Comments MAGNESIUM (BEAKER) (test kfdt=558) 1.6 mg/dL 1.6-2.6 CREATINE KINASE (CK)2018-06-27 12:51:00* Test Item Value Reference Range Comments CREATINE KINASE TOTAL (BEAKER) (test iccz=794) 54 U/L 29-200 CBC W/PLT COUNT & AUTO [id number] 11:49:00* Test Item Value Reference Range Comments WHITE BLOOD CELL COUNT (BEAKER) (test osmg=802) 18.5 K/ L 3.5-10.5 RED BLOOD CELL COUNT (BEAKER) (test czml=802) 4.74 M/ L 3.93-5.22 HEMOGLOBIN (BEAKER) (test fozu=700) 14.2 GM/DL 11.2-15.7 HEMATOCRIT (BEAKER) (test hlgt=479) 43.1 % 34.1-44.9 MEAN CORPUSCULAR VOLUME (BEAKER) (test ucja=675) 90.9 fL 79.4-94.8 MEAN CORPUSCULAR HEMOGLOBIN (BEAKER) (test rgtr=602) 30.0 pg 25.6-32.2 MEAN CORPUSCULAR HEMOGLOBIN CONC (BEAKER) (test ieuj=407) 32.9 GM/DL 32.2-35.5 RED CELL DISTRIBUTION WIDTH (BEAKER) (test zsyf=206) 12.4 % 11.7-14.4 PLATELET COUNT (BEAKER) (test prqz=129) 402 K/CU MM 150-450 MEAN PLATELET VOLUME (BEAKER) (test zptc=336) 10.2 fL 9.4-12.3 NUCLEATED RED BLOOD CELLS (BEAKER) (test xmma=198) 0 /100 WBC 0-0 NEUTROPHILS RELATIVE PERCENT (BEAKER) (test wdzu=305) 75 % LYMPHOCYTES RELATIVE PERCENT (BEAKER) (test koac=683) 16 % MONOCYTES RELATIVE PERCENT (BEAKER) (test cstt=078) 8 % EOSINOPHILS RELATIVE PERCENT (BEAKER) (test wxgv=762) 0 % BASOPHILS RELATIVE PERCENT (BEAKER) (test mejp=336) 0 % NEUTROPHILS ABSOLUTE COUNT (BEAKER) (test hpgn=425) 13.79 K/ L 1.56-6.13 LYMPHOCYTES ABSOLUTE COUNT (BEAKER) (test uaoo=615) 3.01 K/ L 1.18-3.74 MONOCYTES ABSOLUTE COUNT (BEAKER) (test kztt=422) 1.50 K/ L 0.24-0.36 EOSINOPHILS ABSOLUTE COUNT (BEAKER) (test nyhq=925) 0.03 K/ L 0.04-0.36 BASOPHILS ABSOLUTE COUNT (BEAKER) (test gzjb=552) 0.05 K/ L 0.01-0.08 IMMATURE GRANULOCYTES-RELATIVE PERCENT (BEAKER) (test fxoo=7984) 1 % 0-1 BLOOD [id number] 00:00:00* Test Item Value Reference Range Comments CULTURE (BEAKER) (test xyzt=8551) No growth in 5 days BLOOD [id number] 00:00:00* Test Item Value Reference Range Comments CULTURE (BEAKER) (test lznb=2460) No growth in 5 days POCT-GLUCOSE [id number] 08:02:00* Test Item Value Reference Range Comments POC-GLUCOSE METER (BEAKER) (test vjwo=2311) 215 mg/dL 70-110 TESTED AT [facility] [address] [facility] [address] BASIC METABOLIC [id number] 05:12:00* Test Item Value Reference Range Comments SODIUM (BEAKER) (test htpi=040) 130 meq/L 136-145 POTASSIUM (BEAKER) (test fsie=020) 4.0 meq/L 3.5-5.1 CHLORIDE (BEAKER) (test aqkt=842) 93 meq/L 98-107 CO2 (BEAKER) (test zhln=264) 29 meq/L 22-29 BLOOD UREA NITROGEN (BEAKER) (test ixel=208) 26 mg/dL 7-21 CREATININE (BEAKER) (test oumi=173) 0.63 mg/dL 0.57-1.25 GLUCOSE RANDOM (BEAKER) (test mmsg=002) 230 mg/dL 70-105 CALCIUM (BEAKER) (test fdsc=300) 9.7 mg/dL 8.4-10.2 EGFR (BEAKER) (test cyyr=6471) 90 mL/min/1.73 sq m ESTIMATED GFR IS NOT ACCURATE CREATININE CLEARANCE IN PREDICTING GLOMERULAR FILTRATION RATE. ESTIMATED GFR IS NOT APPLICABLE FOR DIALYSIS PATIENTS. CBC W/PLT COUNT & AUTO [id number] 04:46:00* Test Item Value Reference Range Comments WHITE BLOOD CELL COUNT (BEAKER) (test jrld=608) 13.8 K/ L 3.5-10.5 RED BLOOD CELL COUNT (BEAKER) (test brit=091) 4.61 M/ L 3.93-5.22 HEMOGLOBIN (BEAKER) (test zrhf=920) 13.4 GM/DL 11.2-15.7 HEMATOCRIT (BEAKER) (test ajez=698) 39.3 % 34.1-44.9 MEAN CORPUSCULAR VOLUME (BEAKER) (test bojc=864) 85.2 fL 79.4-94.8 MEAN CORPUSCULAR HEMOGLOBIN (BEAKER) (test lwnw=556) 29.1 pg 25.6-32.2 MEAN CORPUSCULAR HEMOGLOBIN CONC (BEAKER) (test mbtc=923) 34.1 GM/DL 32.2-35.5 RED CELL DISTRIBUTION WIDTH (BEAKER) (test kelx=761) 13.1 % 11.7-14.4 PLATELET COUNT (BEAKER) (test guvd=873) 187 K/CU MM 150-450 MEAN PLATELET VOLUME (BEAKER) (test qklc=628) 10.9 fL 9.4-12.3 NUCLEATED RED BLOOD CELLS (BEAKER) (test nsgk=913) 0 /100 WBC 0-0 NEUTROPHILS RELATIVE PERCENT (BEAKER) (test vbhy=454) 88 % LYMPHOCYTES RELATIVE PERCENT (BEAKER) (test qqbf=513) 6 % MONOCYTES RELATIVE PERCENT (BEAKER) (test kmti=241) 5 % EOSINOPHILS RELATIVE PERCENT (BEAKER) (test ezyl=117) 0 % BASOPHILS RELATIVE PERCENT (BEAKER) (test pfai=981) 0 % NEUTROPHILS ABSOLUTE COUNT (BEAKER) (test adpy=411) 12.05 K/ L 1.56-6.13 LYMPHOCYTES ABSOLUTE COUNT (BEAKER) (test ccrk=399) 0.78 K/ L 1.18-3.74 MONOCYTES ABSOLUTE COUNT (BEAKER) (test hqpl=040) 0.72 K/ L 0.24-0.36 EOSINOPHILS ABSOLUTE COUNT (BEAKER) (test svuw=569) 0.00 K/ L 0.04-0.36 BASOPHILS ABSOLUTE COUNT (BEAKER) (test mtlo=941) 0.02 K/ L 0.01-0.08 IMMATURE GRANULOCYTES-RELATIVE PERCENT (BEAKER) (test vlqm=4276) 2 % 0-1 POCT-GLUCOSE [id number] 21:38:00* Test Item Value Reference Range Comments POC-GLUCOSE METER (BEAKER) (test nggt=4435) 345 mg/dL 70-110 TESTED AT [address] [address] POCT-GLUCOSE [id number] 17:16:00* Test Item Value Reference Range Comments POC-GLUCOSE METER (BEAKER) (test mnlv=6800) 235 mg/dL 70-110 TESTED AT [address] [address] POCT-GLUCOSE [id number] 11:38:00* Test Item Value Reference Range Comments POC-GLUCOSE METER (BEAKER) (test fytv=2708) 219 mg/dL 70-110 TESTED AT [facility] [address] [facility] [address] BASIC METABOLIC [id number] 08:09:00* Test Item Value Reference Range Comments SODIUM (BEAKER) (test crix=271) 128 meq/L 136-145 POTASSIUM (BEAKER) (test bwmc=082) 3.8 meq/L 3.5-5.1 Specimen slightly hemolyzed CHLORIDE (BEAKER) (test lilf=315) 91 meq/L 98-107 CO2 (BEAKER) (test otzd=809) 29 meq/L 22-29 BLOOD UREA NITROGEN (BEAKER) (test cbdh=866) 29 mg/dL 7-21 CREATININE (BEAKER) (test scbe=497) 0.66 mg/dL 0.57-1.25 Specimen slightly hemolyzed GLUCOSE RANDOM (BEAKER) (test vnnj=917) 176 mg/dL 70-105 CALCIUM (BEAKER) (test zjjb=956) 9.3 mg/dL 8.4-10.2 EGFR (BEAKER) (test aeru=5045) 86 mL/min/1.73 sq m ESTIMATED GFR IS NOT ACCURATE CREATININE CLEARANCE IN PREDICTING GLOMERULAR FILTRATION RATE. ESTIMATED GFR IS NOT APPLICABLE FOR DIALYSIS PATIENTS. CBC W/PLT COUNT & AUTO [id number] 07:52:00* Test Item Value Reference Range Comments WHITE BLOOD CELL COUNT (BEAKER) (test lifb=051) 14.7 K/ L 3.5-10.5 RED BLOOD CELL COUNT (BEAKER) (test soao=369) 4.73 M/ L 3.93-5.22 HEMOGLOBIN (BEAKER) (test tjfh=214) 13.8 GM/DL 11.2-15.7 HEMATOCRIT (BEAKER) (test tsys=847) 40.7 % 34.1-44.9 MEAN CORPUSCULAR VOLUME (BEAKER) (test cogf=006) 86.0 fL 79.4-94.8 MEAN CORPUSCULAR HEMOGLOBIN (BEAKER) (test noek=838) 29.2 pg 25.6-32.2 MEAN CORPUSCULAR HEMOGLOBIN CONC (BEAKER) (test xmzn=273) 33.9 GM/DL 32.2-35.5 RED CELL DISTRIBUTION WIDTH (BEAKER) (test csso=615) 13.1 % 11.7-14.4 PLATELET COUNT (BEAKER) (test nyet=976) 207 K/CU MM 150-450 MEAN PLATELET VOLUME (BEAKER) (test uomn=862) 11.8 fL 9.4-12.3 NUCLEATED RED BLOOD CELLS (BEAKER) (test ghmf=248) 0 /100 WBC 0-0 NEUTROPHILS RELATIVE PERCENT (BEAKER) (test urad=021) 89 % LYMPHOCYTES RELATIVE PERCENT (BEAKER) (test zryl=884) 6 % MONOCYTES RELATIVE PERCENT (BEAKER) (test apvh=724) 3 % EOSINOPHILS RELATIVE PERCENT (BEAKER) (test kxji=066) 0 % BASOPHILS RELATIVE PERCENT (BEAKER) (test rlnq=393) 0 % NEUTROPHILS ABSOLUTE COUNT (BEAKER) (test ervr=992) 13.13 K/ L 1.56-6.13 LYMPHOCYTES ABSOLUTE COUNT (BEAKER) (test jdmq=470) 0.90 K/ L 1.18-3.74 MONOCYTES ABSOLUTE COUNT (BEAKER) (test iwiu=041) 0.46 K/ L 0.24-0.36 EOSINOPHILS ABSOLUTE COUNT (BEAKER) (test lnvf=520) 0.00 K/ L 0.04-0.36 BASOPHILS ABSOLUTE COUNT (BEAKER) (test juqy=263) 0.01 K/ L 0.01-0.08 IMMATURE GRANULOCYTES-RELATIVE PERCENT (BEAKER) (test dkti=2859) 1 % 0-1 POCT-GLUCOSE [id number] 07:44:00* Test Item Value Reference Range Comments POC-GLUCOSE METER (BEAKER) (test xwfi=1173) 205 mg/dL 70-110 TESTED AT [address] [address] POCT-GLUCOSE [id number] 21:50:00* Test Item Value Reference Range Comments POC-GLUCOSE METER (BEAKER) (test pcpm=4550) 334 mg/dL 70-110 TESTED AT [address] [address] POCT-GLUCOSE [id number] 17:49:00* Test Item Value Reference Range Comments POC-GLUCOSE METER (BEAKER) (test pikc=7212) 207 mg/dL 70-110 TESTED AT [address] [address] POCT-GLUCOSE [id number] 12:38:00* Test Item Value Reference Range Comments POC-GLUCOSE METER (BEAKER) (test vnov=7524) 295 mg/dL 70-110 TESTED AT [address] [address] POCT-GLUCOSE [id number] 08:06:00* Test Item Value Reference Range Comments POC-GLUCOSE METER (BEAKER) (test nhxj=1158) 177 mg/dL 70-110 TESTED AT [address] [address] POCT-GLUCOSE [id number] 21:49:00* Test Item Value Reference Range Comments POC-GLUCOSE METER (BEAKER) (test eijp=8152) 125 mg/dL 70-110 TESTED AT [address] [address] POCT-GLUCOSE [id number] 16:14:00* Test Item Value Reference Range Comments POC-GLUCOSE METER (BEAKER) (test pnkv=4515) 334 mg/dL 70-110 TESTED AT [address] [address] POCT-GLUCOSE [id number] 12:36:00* Test Item Value Reference Range Comments POC-GLUCOSE METER (BEAKER) (test upwy=0333) 296 mg/dL 70-110 TESTED AT [address] [address] [id number] 07:36:00* Test Item Value Reference Range Comments MAGNESIUM (BEAKER) (test ncre=180) 1.7 mg/dL 1.6-2.6 BASIC METABOLIC [id number] 07:36:00* Test Item Value Reference Range Comments SODIUM (BEAKER) (test ztci=505) 130 meq/L 136-145 POTASSIUM (BEAKER) (test qurx=948) 4.5 meq/L 3.5-5.1 CHLORIDE (BEAKER) (test oody=316) 96 meq/L 98-107 CO2 (BEAKER) (test ukop=600) 27 meq/L 22-29 BLOOD UREA NITROGEN (BEAKER) (test ptqf=951) 21 mg/dL 7-21 CREATININE (BEAKER) (test zzth=111) 0.65 mg/dL 0.57-1.25 GLUCOSE RANDOM (BEAKER) (test ukmh=373) 206 mg/dL 70-105 CALCIUM (BEAKER) (test jmzr=544) 9.7 mg/dL 8.4-10.2 EGFR (BEAKER) (test lwin=5181) 87 mL/min/1.73 sq m ESTIMATED GFR IS NOT ACCURATE CREATININE CLEARANCE IN PREDICTING GLOMERULAR FILTRATION RATE. ESTIMATED GFR IS NOT APPLICABLE FOR DIALYSIS PATIENTS. POCT-GLUCOSE [id number] 07:29:00* Test Item Value Reference Range Comments POC-GLUCOSE METER (BEAKER) (test dotl=3314) 210 mg/dL 70-110 TESTED AT [facility] [address] [facility] [address] CBC W/PLT COUNT & AUTO [id number] 05:26:00* Test Item Value Reference Range Comments WHITE BLOOD CELL COUNT (BEAKER) (test lbvc=170) 16.0 K/ L 3.5-10.5 RED BLOOD CELL COUNT (BEAKER) (test jvrq=350) 4.65 M/ L 3.93-5.22 HEMOGLOBIN (BEAKER) (test kdnm=216) 13.6 GM/DL 11.2-15.7 HEMATOCRIT (BEAKER) (test akgz=412) 39.7 % 34.1-44.9 MEAN CORPUSCULAR VOLUME (BEAKER) (test xsyr=353) 85.4 fL 79.4-94.8 MEAN CORPUSCULAR HEMOGLOBIN (BEAKER) (test auwe=863) 29.2 pg 25.6-32.2 MEAN CORPUSCULAR HEMOGLOBIN CONC (BEAKER) (test rgtz=299) 34.3 GM/DL 32.2-35.5 RED CELL DISTRIBUTION WIDTH (BEAKER) (test uxpx=256) 13.0 % 11.7-14.4 PLATELET COUNT (BEAKER) (test njzr=799) 231 K/CU MM 150-450 MEAN PLATELET VOLUME (BEAKER) (test favm=906) 11.1 fL 9.4-12.3 NUCLEATED RED BLOOD CELLS (BEAKER) (test zgob=780) 0 /100 WBC 0-0 NEUTROPHILS RELATIVE PERCENT (BEAKER) (test dmce=955) 88 % LYMPHOCYTES RELATIVE PERCENT (BEAKER) (test snfu=544) 7 % MONOCYTES RELATIVE PERCENT (BEAKER) (test cplk=314) 4 % EOSINOPHILS RELATIVE PERCENT (BEAKER) (test lath=779) 0 % BASOPHILS RELATIVE PERCENT (BEAKER) (test alwi=972) 0 % NEUTROPHILS ABSOLUTE COUNT (BEAKER) (test ruhu=488) 14.13 K/ L 1.56-6.13 LYMPHOCYTES ABSOLUTE COUNT (BEAKER) (test aeir=857) 1.06 K/ L 1.18-3.74 MONOCYTES ABSOLUTE COUNT (BEAKER) (test csjv=782) 0.56 K/ L 0.24-0.36 EOSINOPHILS ABSOLUTE COUNT (BEAKER) (test fsjs=193) 0.00 K/ L 0.04-0.36 BASOPHILS ABSOLUTE COUNT (BEAKER) (test gjiq=843) 0.01 K/ L 0.01-0.08 IMMATURE GRANULOCYTES-RELATIVE PERCENT (BEAKER) (test dbmu=3676) 1 % 0-1 HEMOGLOBIN [id number] 01:39:00* Test Item Value Reference Range Comments HEMOGLOBIN A1C (BEAKER) (test fbbs=552) 6.5 % 4.3-6.1 POCT-GLUCOSE [id number] 21:31:00* Test Item Value Reference Range Comments POC-GLUCOSE METER (BEAKER) (test frzt=5333) 257 mg/dL 70-110 TESTED AT [address] [address] LACTIC ACID, VENOUS, WHOLE [id number] 17:23:00* Test Item Value Reference Range Comments LACTATE BLOOD VENOUS (2) (BEAKER) (test lnjr=9105) 5.6 mmol/L 0.5-2.2 Effective 08/18/2015: Units/Reference Range ChangeNew: 0.5-2.2 mmol/L Previous: 5 -20 mg/dLPOCT-GLUCOSE [id number] 16:12:00* Test Item Value Reference Range Comments POC-GLUCOSE METER (BEAKER) (test zmyj=3086) 232 mg/dL 70-110 TESTED AT [address] [address] POCT-GLUCOSE [id number] 10:36:00* Test Item Value Reference Range Comments POC-GLUCOSE METER (BEAKER) (test wqpd=7974) 233 mg/dL 70-110 TESTED AT [address] [address] POCT-GLUCOSE [id number] 07:38:00* Test Item Value Reference Range Comments POC-GLUCOSE METER (BEAKER) (test pqlr=0434) 244 mg/dL 70-110 TESTED AT [facility] [address] [place] [address] CBC W/PLT COUNT & AUTO [id number] 05:36:00* Test Item Value Reference Range Comments WHITE BLOOD CELL COUNT (BEAKER) (test aswz=712) 9.8 K/ L 3.5-10.5 RED BLOOD CELL COUNT (BEAKER) (test kreq=947) 5.10 M/ L 3.93-5.22 HEMOGLOBIN (BEAKER) (test iqbw=838) 14.5 GM/DL 11.2-15.7 HEMATOCRIT (BEAKER) (test uvqi=418) 43.3 % 34.1-44.9 MEAN CORPUSCULAR VOLUME (BEAKER) (test elcd=737) 84.9 fL 79.4-94.8 MEAN CORPUSCULAR HEMOGLOBIN (BEAKER) (test aplq=344) 28.4 pg 25.6-32.2 MEAN CORPUSCULAR HEMOGLOBIN CONC (BEAKER) (test knnu=830) 33.5 GM/DL 32.2-35.5 RED CELL DISTRIBUTION WIDTH (BEAKER) (test iffj=892) 12.7 % 11.7-14.4 PLATELET COUNT (BEAKER) (test nccb=637) 234 K/CU MM 150-450 MEAN PLATELET VOLUME (BEAKER) (test brlu=751) 10.9 fL 9.4-12.3 NUCLEATED RED BLOOD CELLS (BEAKER) (test abzh=701) 0 /100 WBC 0-0 NEUTROPHILS RELATIVE PERCENT (BEAKER) (test scid=718) 89 % LYMPHOCYTES RELATIVE PERCENT (BEAKER) (test pjkr=798) 7 % MONOCYTES RELATIVE PERCENT (BEAKER) (test ytef=138) 3 % EOSINOPHILS RELATIVE PERCENT (BEAKER) (test igaa=364) 0 % BASOPHILS RELATIVE PERCENT (BEAKER) (test zuxg=415) 0 % NEUTROPHILS ABSOLUTE COUNT (BEAKER) (test qlag=153) 8.69 K/ L 1.56-6.13 LYMPHOCYTES ABSOLUTE COUNT (BEAKER) (test iqae=917) 0.66 K/ L 1.18-3.74 MONOCYTES ABSOLUTE COUNT (BEAKER) (test hlsp=116) 0.25 K/ L 0.24-0.36 EOSINOPHILS ABSOLUTE COUNT (BEAKER) (test wyyq=830) 0.00 K/ L 0.04-0.36 BASOPHILS ABSOLUTE COUNT (BEAKER) (test sdqa=090) 0.01 K/ L 0.01-0.08 IMMATURE GRANULOCYTES-RELATIVE PERCENT (BEAKER) (test nion=4166) 2 % 0-1 BASIC METABOLIC [id number] 05:32:00* Test Item Value Reference Range Comments SODIUM (BEAKER) (test pprv=657) 132 meq/L 136-145 POTASSIUM (BEAKER) (test vubd=927) 3.0 meq/L 3.5-5.1 CHLORIDE (BEAKER) (test amlw=557) 94 meq/L 98-107 CO2 (BEAKER) (test jebg=853) 27 meq/L 22-29 BLOOD UREA NITROGEN (BEAKER) (test ztoo=812) 23 mg/dL 7-21 CREATININE (BEAKER) (test hhfc=289) 0.85 mg/dL 0.57-1.25 GLUCOSE RANDOM (BEAKER) (test pyib=157) 323 mg/dL 70-105 CALCIUM (BEAKER) (test hivm=472) 10.1 mg/dL 8.4-10.2 EGFR (BEAKER) (test odhk=5665) 64 mL/min/1.73 sq m ESTIMATED GFR IS NOT ACCURATE CREATININE CLEARANCE IN PREDICTING GLOMERULAR FILTRATION RATE. ESTIMATED GFR IS NOT APPLICABLE FOR DIALYSIS PATIENTS. LACTIC ACID, VENOUS, WHOLE [id number] 20:20:00* Test Item Value Reference Range Comments LACTATE BLOOD VENOUS (2) (BEAKER) (test ycda=2223) 2.9 mmol/L 0.5-2.2 Specimen moderately hemolyzed Effective 08/18/2015: Units/Reference Range ChangeNew: 0.5-2.2 mmol/L Previous: 5 -20 mg/dLCT, CHEST, WITHOUT [id number] 20:15:00FINAL REPORT Chest CT without intravenous contrast INDICATION: hx of bronchiectasis with persistent cough/wheeze, eval for PNA COMPARISON: 06/19/2013 TECHNIQUE: Multiple contiguous transaxial images of the chest were obtained without intravenous contrast. This exam was performed according to our departmental dose optimization program which includes automated exposure control, adjustment of the mA and/or kV according to patient size and/or use of iterative reconstructive technique. FINDINGS: Lack of intravenous contrast limits evaluat ion of the parenchymal and vascular organs. There is no pneumothorax, pulmonary edema or significant pleural effusion. There is scattered atelectasis and scarri ng bilaterally without definite focal consolidation. There is nodular scarring i n the lung apices as before. There is mild bronchiectasis of the bilateral lower lobes with volume loss. The lungs are hyperinflated as before. The major airways are clear. The visualized portion of the thyroid gland appear unremarkable. At herosclerotic vascular calcifications are seen. There is no hilar, mediastinal o r axillary lymphadenopathy. There is no pericardial effusion. There is a small h iatus hernia. Limited visualization of the upper abdominal structures appear unr emarkable. The osseous structures demonstrate degenerative changes. IMPRESSION:1 . Chronic bronchiectasis of the bilateral lower lobes with volume loss.2. Scatte red atelectasis and scarring without focal consolidation. Signed: Anival Aponte Verified Date/Time: 08/30/2017 20:15:58 Reading Location: [address] [facility] Consult Reading Room Electronically signed by: ANIVAL APONTE M.D. on 08:15 PM POCT-GLUCOSE [id number] 19:23:00* Test Item Value Reference Range Comments POC-GLUCOSE METER ([employer]) (test szit=2265) 218 mg/dL 70-110 [address]ED AT [address] [address] TROPONIN [id number] 16:29:00* Test Item Value Reference Range Comments TROPONIN I ([facility]) (test sxrk=830) 0.02 ng/mL 0.00-0.03 Troponin I (TnI) levels must be interpreted in the context of the presenting sym ptoms and the clinical findings. Elevated TnI levels indicate myocardial damage, but are not specific for ischemic heart disease. Elevated TnI levels are seen in patients with other cardiac conditions (including myocarditis and congestive h eart failure), and slight TnI elevations occur in patients with other conditions , including sepsis, renal failure, acidosis, acute neurological disease, and per sistent tachyarrhythmia.B-TYPE NATRIURETIC FACTOR (BNP)2017-08-30 16:29:00* Test Item Value Reference Range Comments B-TYPE NATRIURETIC PEPTIDE ([employer]) (test jzyk=955) 107 pg/mL 0-100 [id number] 16:22:00* Test Item Value Reference Range Comments MAGNESIUM (BEAKER) (test pias=849) 1.7 mg/dL 1.6-2.6 Specimen slightly hemolyzed BASIC METABOLIC [id number] 16:22:00* Test Item Value Reference Range Comments SODIUM (BEAKER) (test lsgd=303) 131 meq/L 136-145 POTASSIUM (BEAKER) (test itko=292) 5.1 meq/L 3.5-5.1 Specimen slightly hemolyzed CHLORIDE (BEAKER) (test uoek=194) 93 meq/L 98-107 CO2 (BEAKER) (test vrtt=381) 29 meq/L 22-29 BLOOD UREA NITROGEN (BEAKER) (test nlcv=607) 27 mg/dL 7-21 CREATININE (BEAKER) (test vtga=529) 0.94 mg/dL 0.57-1.25 Specimen slightly hemolyzed GLUCOSE RANDOM (BEAKER) (test gefv=724) 203 mg/dL 70-105 CALCIUM (BEAKER) (test skjx=763) 10.4 mg/dL 8.4-10.2 EGFR (BEAKER) (test vqci=5679) 57 mL/min/1.73 sq m ESTIMATED GFR IS NOT ACCURATE CREATININE CLEARANCE IN PREDICTING GLOMERULAR FILTRATION RATE. ESTIMATED GFR IS NOT APPLICABLE FOR DIALYSIS PATIENTS. CBC W/PLT COUNT & AUTO [id number] 16:15:00* Test Item Value Reference Range Comments WHITE BLOOD CELL COUNT (BEAKER) (test gipx=203) 18.4 K/ L 3.5-10.5 RED BLOOD CELL COUNT (BEAKER) (test utyi=575) 5.30 M/ L 3.93-5.22 HEMOGLOBIN (BEAKER) (test hwcx=389) 15.7 GM/DL 11.2-15.7 HEMATOCRIT (BEAKER) (test zpme=558) 46.2 % 34.1-44.9 MEAN CORPUSCULAR VOLUME (BEAKER) (test bpjt=996) 87.2 fL 79.4-94.8 MEAN CORPUSCULAR HEMOGLOBIN (BEAKER) (test arat=386) 29.6 pg 25.6-32.2 MEAN CORPUSCULAR HEMOGLOBIN CONC (BEAKER) (test zjvp=712) 34.0 GM/DL 32.2-35.5 RED CELL DISTRIBUTION WIDTH (BEAKER) (test qmgo=279) 13.1 % 11.7-14.4 PLATELET COUNT (BEAKER) (test rzds=545) 321 K/CU MM 150-450 MEAN PLATELET VOLUME (BEAKER) (test azbw=960) 10.8 fL 9.4-12.3 NUCLEATED RED BLOOD CELLS (BEAKER) (test greu=825) 0 /100 WBC 0-0 NEUTROPHILS RELATIVE PERCENT (BEAKER) (test mrde=590) 90 % LYMPHOCYTES RELATIVE PERCENT (BEAKER) (test jyxp=689) 6 % MONOCYTES RELATIVE PERCENT (BEAKER) (test riux=351) 1 % EOSINOPHILS RELATIVE PERCENT (BEAKER) (test rdqq=938) 0 % BASOPHILS RELATIVE PERCENT (BEAKER) (test tqae=288) 0 % NEUTROPHILS ABSOLUTE COUNT (BEAKER) (test uhtc=985) 16.59 K/ L 1.56-6.13 LYMPHOCYTES ABSOLUTE COUNT (BEAKER) (test psxy=832) 1.16 K/ L 1.18-3.74 MONOCYTES ABSOLUTE COUNT (BEAKER) (test pyqq=463) 0.26 K/ L 0.24-0.36 EOSINOPHILS ABSOLUTE COUNT (BEAKER) (test twdi=646) 0.00 K/ L 0.04-0.36 BASOPHILS ABSOLUTE COUNT (BEAKER) (test bcee=079) 0.03 K/ L 0.01-0.08 IMMATURE GRANULOCYTES-RELATIVE PERCENT (BEAKER) (test will=8792) 2 % 0-1 RAD, CHEST, 1 VIEW, NON [id number] 15:45:00Reason for exam:->chest painFINAL REPORT EXAM: Frontal chest radiograph HISTORY PROVIDED: Chest pain COMPARISON: 06/19/2013 IMPRESSION:Bibasilar opacities compatible with scarring demonstrates no significant change. No focal consolidation. Stable blunting of the bilateral costophrenic angle suggests pleural thickening/scarrin g. No pneumothorax or significant pleural fluid. Biapical pleural-parenchymal th ickening is also unchanged. The cardiomediastinal silhouette is within normal li mits. No acute osseous abnormality. Signed: Lyudmila Morrow MDReport Verified Date/Time: 08/30/2017 15:45:29 Reading Location: [facility] Mammo Reading Room
--- NOTE | 2019-01-20 12:22 | Diagnostic Imaging Report ---
EXAMINATION: CXR 2 VIEW - HOPD INDICATION: Shortness of breath COMPARISON: None FINDINGS: LINES/TUBES:None LUNGS:The lungs are hyperinflated. No focal consolidation or pulmonary edema. Mild biapical pleural parenchymal thickening/scarring. PLEURA:Trace bilateral pleural effusions. No pneumothorax. MEDIASTINUM:The cardiomediastinal silhouette is enlarged. Atherosclerotic calcifications of the thoracic aorta. BONES/SOFT TISSUES:No acute osseous injury. ABDOMEN:No free air under the diaphragm. IMPRESSION: Hyperinflated lungs. No focal pneumonia or pulmonary edema. Cardiomegaly. Signed by: Jamison Vazquez MD on 01/20/2019 12:18 PM
[2019-01-20 13:17] VITALS: BP 179/98
== END 2019-01-20 13:21 | disposition home or self-care (01) ==
LOC: FSED 11:04
DX: R05 Cough (principal); J06.9 Acute upper respiratory infection, unspecified; J42 Unspecified chronic bronchitis; J98.4 Other disorders of lung; I10 Essential (primary) hypertension
CPT/HCPCS: 71046; 80053; 81003; 85025; 87400; 99284

== ENCOUNTER 2019-02-10 17:35 | Emergency (ER) | payer MEDICARE ==
[~2019-02-10] VITALS: Ht 152.4 cm; Wt 49.9 kg
[2019-02-10] MEDS ORDERED: ALBUTEROL/IPRATROPIUM 3 ML NEB NEB STA (17:42)
[2019-02-10] MEDS ORDERED: METHYLPREDNISOLONE SOD SUCC 125 MG/2ML VIAL IV STA (17:42)
[2019-02-10] MEDS ORDERED: ALBUTEROL/IPRATROPIUM 3 ML NEB ONE (17:45)
[2019-02-10] MEDS ORDERED: METHYLPREDNISOLONE SOD SUCC 125 MG/2ML VIAL ONE (17:45)
[2019-02-10] MEDS ORDERED: ALBUTEROL/IPRATROPIUM 3 ML NEB NEB ONE (17:52)
[2019-02-10] MEDS ORDERED: ASPIRIN 81 MG CHEW TAB PO STA (18:16)
[2019-02-10] MEDS ORDERED: FUROSEMIDE INJ 10 MG/ML 2 ML VIAL IV ONE (18:18)
--- NOTE | 2019-02-10 18:18 | Diagnostic Imaging Report ---
A single frontal view of the chest. HISTORY: Chest pain COMPARISON: Chest radiographs January 20, 2019. DISCUSSION: Portable technique, limits sensitivity of the exam. Overlying artifacts. Tubes/Lines: None Lungs and pleura: The lungs remain hyperinflated. Stable bibasilar atelectasis versus scarring. Stable right upper lung 3 mm calcified density, likely a calcified granuloma. No evidence of a consolidative pneumonia or pulmonary alveolar edema. No definite pleural effusion or pneumothorax is identified. Heart and mediastinum: The cardiomediastinal silhouette appear(s) unremarkable. Prominent central pulmonary vasculature. Bones and soft tissues: Appear unremarkable, given this limited exam. IMPRESSION: 1. Findings remain compatible with obstructive lung disease. 2. Prominent central pulmonary vasculature may represent increased pulmonary arterial pressures. 3. No significant interval change. Signed by: Dr. Jarvis Richardson D.O., M.M.M. on 02/10/2019 6:15 PM
[2019-02-10] MEDS ORDERED: ASPIRIN 325 MG TAB ONE (18:21)
[2019-02-10] MEDS ORDERED: NITROGLYCERIN 2% OINT 1 GM PKT TOP STA (18:22)
--- NOTE | 2019-02-10 18:28 | NUR ---
INITIATED TRANSFER TO [facility], PT AND FAMILY AWARE OF POC
[2019-02-10] MEDS ORDERED: FUROSEMIDE INJ 10 MG/ML 4 ML VIAL ONE (18:35)
[2019-02-10] MEDS ORDERED: NITROGLYCERIN 2% OINT 1 GM PKT ONE (18:36)
[2019-02-10] MEDS ORDERED: LEVOFLOXACIN 750MG/D5W 150ML 150 ML IV ONE ×2 (18:37→20:00)
--- NOTE | 2019-02-10 19:01 | NUR ---
CALLED TRANSFER CENTER AGAIN FOR UPDATE
--- NOTE | 2019-02-10 19:03 | NUR ---
REPORT TO LISA WINTERS ALL QUESTIONS ANSWERED
[2019-02-10] MEDS ORDERED: AMIODARONE HCL INJ 150MG/3ML ONE (19:12)
[2019-02-10] MEDS ORDERED: SODIUM CHLORIDE 0.9% 50ML 50 ML ONE (19:14)
[2019-02-10] MEDS ORDERED: AMIODARONE HCL 150 MG/100 ML BAG IV STA (19:17)
== END 2019-02-10 20:20 | disposition other institution (70) ==
LOC: FSED 17:35
DX: R06.00 Dyspnea, unspecified (principal); R07.9 Chest pain, unspecified; R05 Cough; I21.4 Non-ST elevation (NSTEMI) myocardial infarction; I48.20 Chronic atrial fibrillation, unspecified; I50.1 Left ventricular failure, unspecified; I10 Essential (primary) hypertension; E11.9 Type 2 diabetes mellitus without complications
CPT/HCPCS: 71045; 80048; 80076; 82553; 83880; 84484; 85025; 87040; 87071; 87205; 99284; J0282; J1940; J2930